=== PATIENT | male | born 1995 | race African-American/Black ===

== ENCOUNTER 2024-05-05 13:39 | Emergency (ER) | payer MEDICAID ==
[~2024-05-05] VITALS: Ht 167.6 cm; Wt 77.7 kg
[2024-05-05 13:50] VITALS: TEMP 98.2
[2024-05-05] MEDS: IBUPROFEN 600 MG TABLET PO ONE (15:18)
[2024-05-05] MEDS: LIDOCAINE 5% TRANSDERMAL PATCH TD ONE (15:19)
[2024-05-05] MEDS: ACETAMINOPHEN 500 MG TABLET PO ONE (15:19)
[2024-05-05] MEDS ORDERED: IBUP-1492 PO (15:23)
[2024-05-05] MEDS ORDERED: ACET-3385 PO (15:23)
[2024-05-05 15:38] VITALS: BP 155/87; PULSE 77; RESP 18
== END 2024-05-05 16:06 | disposition home or self-care (01) ==
LOC: EMS 13:39
DX: G89.29 Other chronic pain (principal); M54.50 Low back pain, unspecified
CPT/HCPCS: 99284; Z7502; Z7610